=== PATIENT | female | born 1995 | race Caucasian/White ===

== ENCOUNTER 2019-03-26 10:03 | Emergency (ER) | payer OTHER | END 2019-03-26 11:30 | disposition home or self-care (01) | LOC: ER FS 10:03 ==

== ENCOUNTER 2019-07-08 16:32 | Emergency (ER) | payer SELFPAY ==
[~2019-07-08] VITALS: Ht 170 cm; Wt 72.0 kg
[~2019-07-08 16:32] MED LIST: ACHD5005 PO; AMOX500C2 PO
[2019-07-08] MEDS ORDERED: TETANUS,DIPTH,PERTUSS P/F (BOOSTRIX) 0.5 ML VIAL IM ONE (17:00)
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
[2019-07-08] MEDS ORDERED: CEPH500T PO (17:44)
[2019-07-08] MEDS ORDERED: CEPHALEXIN 250 MG (KEFLEX) CAP PO STA (17:44)
[2019-07-08] MEDS ORDERED: IBUPROFEN 800 MG (MOTRIN) TAB PO STA (17:44)
[2019-07-08] MEDS ORDERED: IBUP-1780 PO (18:05)
[2019-07-08 18:15] VITALS: BP 124/72
== END 2019-07-08 18:15 | disposition home or self-care (01) ==
LOC: EDUNIT# 16:32 → EDSEX 16:34 → ER FS 16:34
DX: S02.2XXB Fracture of nasal bones, initial encounter for open fracture (principal); S02.5XXA Fracture of tooth (traumatic), initial encounter for closed fracture; S00.83XA Contusion of other part of head, initial encounter; G47.30 Sleep apnea, unspecified; R40.2142 Coma scale, eyes open, spontaneous, at arrival to emergency department; R40.2252 Coma scale, best verbal response, oriented, at arrival to emergency department; R40.2362 Coma scale, best motor response, obeys commands, at arrival to emergency department; Z87.891 Personal history of nicotine dependence; V18.4XXA Pedal cycle driver injured in noncollision transport accident in traffic accident, initial encounter
CPT/HCPCS: 12051; 70450; 70486; 90471; 90715